=== PATIENT | female | born 1925 | race Caucasian/White ===

== ENCOUNTER 2017-11-10 09:21 | Inpatient (IN) | payer MEDICARE ==
[2017-11-10] VITALS (10 sets, daily range): BP systolic 97–159; BP diastolic 70–93; PULSE 99–111; RESP 20–24; TEMP 96.1–97.5; O2SAT 88–100
[~2017-11-10] VITALS: Ht 170.2 cm; Wt 78.0 kg
[2017-11-10] MEDS ORDERED: SODIUM CHLORIDE 0.9% FLUSH 10 ML FLUSH IVF PRN (10:45)
--- NOTE | 2017-11-10 10:48 | PD ---
HPI Chief Complaint: Respiratory Symptoms Time Seen by Provider: 10:30 Travel History International Travel<30 days: No Contact w/Intl Traveler<30days: No Traveled to known affect area: No History of Present Illness HPI This 89-year-old female is complaining of shortness of breath. She says she started to notice some shortness of breath early in the summer. She went to her physician's in [facility]. There was some disagreement whether her trouble breathing was related to a valve replacement she had had 4 years ago. She had a cow valve placed in the aortic area. She has a history of atrial fibrillation and she recently went to see Dr. Watson Waller and he was concerned that she may have fluid in the right lung. She followed up with Dr. Bryant and was scheduled for a procedure on the [address] [place] [address] to remove some fluid. She was also put on a Z-Napoleon. She is on Coumadin. She was told to hold her Coumadin while she was on a Z-Napoleon. She started coumaden again yesterday. She smoked in the past but stopped about 50 years ago. She has had some weight loss. She says her balance has been off. She has been going to physical therapy. She is not very active. [facility] Social History Tobacco Use: No Allergies-Medications (Allergen,Severity, Reaction): Coded Allergies: codeine (Verified Allergy, Unknown, 11/10/17) lisinopril (Verified Allergy, Unknown, 11/10/17) morphine (Verified Allergy, Unknown, 11/10/17) Reported Meds & Prescriptions Reported Meds & Active Scripts Active Reported Temazepam 15 Mg Cap 15 Mg PO HS PRN Buspirone (Buspirone HCl) 10 Mg Tab 10 Mg PO HS PRN Vitamin E 200 Unit Cap 200 Units PO DAILY Pramipexole (Pramipexole Dihydrochloride) 0.5 Mg Tab 0.5 Mg PO DAILY Simvastatin 40 Mg Tab 40 Mg PO HS Multiple Vitamin 1 Tab 1 Tab PO DAILY Carvedilol 12.5 Mg Tab 12.5 Mg PO BID Losartan-Hydrochlorothiazide 50-12.5 Mg Tab 1 Tab PO DAILY Omeprazole 40 Mg Cap 40 Mg PO BID Levothyroxine (Levothyroxine Sodium) 88 Mcg Tab 88 Mcg PO DAILY Review of Systems General / Constitutional: Positive: Weight Loss, No: Fever, Chills Eyes: No: Diploplia, Blurred Vision HENT: No: Headaches Cardiovascular: No: Chest Pain or Discomfort, Palpitations Respiratory: Positive: Cough, Shortness of Breath Gastrointestinal: No: Vomiting, Diarrhea Genitourinary: No: Urgency, Frequency Musculoskeletal: No: Myalgias, Arthralgias Neurologic: Positive: Weakness Endocrine: No: Heat Intolerance, Cold Intolerance Hematologic/Lymphatic: No: Easy Bruising Physical Exam Narrative GENERAL: Well-developed female. She is short of breath and oxygen saturation on room air is 88% SKIN: Focused skin assessment warm/dry. HEAD: Atraumatic. Normocephalic. EYES: Pupils equal and round. No scleral icterus. No injection or drainage. ENT: No nasal bleeding or discharge. Mucous membranes pink and moist. NECK: Trachea midline. No JVD. CARDIOVASCULAR: Regular rate and rhythm. No murmur appreciated. RESPIRATORY: There is accessory muscle use. There are bilateral rales. Breath sounds are diminished on the right GASTROINTESTINAL: Abdomen soft, non-tender, nondistended. Hepatic and splenic margins not palpable. MUSCULOSKELETAL: No obvious deformities. No clubbing. No cyanosis. No edema. NEUROLOGICAL: Awake and alert. No obvious cranial nerve deficits. Motor grossly within normal limits. Normal speech. PSYCHIATRIC: Appropriate mood and affect; insight and judgment normal. Data Data Last Documented VS Vital Signs Date Time Temp Pulse Resp B/P (MAP) Pulse Ox O2 Delivery O2 Flow Rate FiO2 11/10/17 12:19 97.5 105 22 140/76 (97) 97 Nasal Cannula 2.00 Orders Orders Complete Blood Count With Diff (11/10/17 10:43) Comprehensive Metabolic Panel (11/10/17 10:43) B-Type Natriuretic Peptide (11/10/17 10:43) Act Partial Throm Time (Ptt) (11/10/17 10:43) Prothrombin Time / Inr (Pt) (11/10/17 10:43) Magnesium (Mg) (11/10/17 10:43) Troponin I (11/10/17 10:43) Urinalysis - C+S If Indicated (11/10/17 10:43) Influenzae A/B Antigen (11/10/17 10:43) Blood Culture (11/10/17 10:43) Iv Access Insert/Monitor (11/10/17 10:43) Electrocardiogram (11/10/17 10:43) Ecg Monitoring (11/10/17 10:43) Oximetry (11/10/17 10:43) Oxygen Administration (11/10/17 10:43) Chest, Single Ap (11/10/17 10:43) Sodium Chloride 0.9% Flush (Ns Flush) (11/10/17 10:45) Ct Thorax/ Chest W Iv Contrast (11/10/17 11:23) Iodixanol 320 Inj (Rad Ct) (Visipaque 32 (11/10/17 12:41) Admit Order (Ed Use Only) (11/10/17 13:13) Labs Laboratory Tests Test 11/10/17 11:15 White Blood Count 4.8 TH/MM3 Red Blood Count 4.65 MIL/MM3 Hemoglobin 13.3 GM/DL Hematocrit 41.8 % Mean Corpuscular Volume 89.8 FL Mean Corpuscular Hemoglobin 28.5 PG Mean Corpuscular Hemoglobin Concent 31.8 % Red Cell Distribution Width 17.1 % Platelet Count 113 TH/MM3 Mean Platelet Volume 8.0 FL Neutrophils (%) (Auto) 76.2 % Lymphocytes (%) (Auto) 11.5 % Monocytes (%) (Auto) 12.0 % Eosinophils (%) (Auto) 0.1 % Basophils (%) (Auto) 0.2 % Neutrophils # (Auto) 3.7 TH/MM3 Lymphocytes # (Auto) 0.5 TH/MM3 Monocytes # (Auto) 0.6 TH/MM3 Eosinophils # (Auto) 0.0 TH/MM3 Basophils # (Auto) 0.0 TH/MM3 CBC Comment DIFF FINAL Differential Comment Prothrombin Time 25.5 SEC Prothromb Time International Ratio 2.5 RATIO Activated Partial Thromboplast Time 28.0 SEC Blood Urea Nitrogen 41 MG/DL Creatinine 1.40 MG/DL Random Glucose 103 MG/DL Total Protein 6.7 GM/DL Albumin 3.6 GM/DL Calcium Level 9.3 MG/DL Magnesium Level 1.6 MG/DL Alkaline Phosphatase 61 U/L Aspartate Amino Transf (AST/SGOT) 42 U/L Alanine Aminotransferase (ALT/SGPT) 36 U/L Total Bilirubin 1.1 MG/DL Sodium Level 143 MEQ/L Potassium Level 3.7 MEQ/L Chloride Level 104 MEQ/L Carbon Dioxide Level 28.4 MEQ/L Anion Gap 11 MEQ/L Estimat Glomerular Filtration Rate 35 ML/MIN Troponin I 0.02 NG/ML B-Type Natriuretic Peptide 573 PG/ML MDM Medical Decision Making Medical Screen Exam Complete: Yes Emergency Medical Condition: Yes Medical Record Reviewed: Yes Differential Diagnosis Differential includes pneumonia, CHF, COPD Narrative Course Chest x-ray shows question of elevated hemidiaphragm with questionable pneumonia versus fluid. CT scan was obtained which shows large right pleural effusion. Patient will be admitted for further treatment Diagnosis Primary Impression: Pleural effusion, right Admitting Information Admitting Physician Requests: Admit Baldo Eckert MD Nov 10, 2017 10:48
--- NOTE | 2017-11-10 11:03 | RADRPT ---
EXAM DATE/TIME: 11/10/2017 10:53 [facility] COMPARISON: No previous studies available for comparison. INDICATIONS : Cough and Short of breath MEDICAL HISTORY : AFib, Smoker SURGICAL HISTORY : CABG. ENCOUNTER: Initial ACUITY: 4 - 6 months PAIN SCORE: 6/10 LOCATION: Bilateral chest FINDINGS: There is a prior median sternotomy and valve prosthesis in place. Left lung is clear. Right lung reve als opacity mid and basilar region which could represent elevation of the hemidiaphragm and parenchym al atelectasis CONCLUSION: Abnormal chest x-ray prior median sternotomy and valve prosthesis in place. Opacity inferior aspect of the right hemithorax in part repr esent elevation of hemidiaphragm in part parenchymal consolidation. Sadi Siddiqi MD on November 10, 2017 at 11:00 Board Certified Radiologist. This report was verified electronically.
[2017-11-10 11:22] LABS: AUTOMATED NEUTROPHIL # 3.7 TH/MM3 (1.8-7.7); BASOPHIL % 0.2 % (0.0-2.0); EOSINOPHIL % 0.1 % (0.0-4.0); HEMATOCRIT 41.8 % (35.0-46.0); HEMOGLOBIN 13.3 GM/DL (11.6-15.3); LYMPH % 11.5 % (9.0-44.0); LYMPHOCYTE # 0.5 TH/MM3 (1.0-4.8); MEAN CELL VOLUME 89.8 FL (80.0-100.0); MEAN CORPUSCULAR HEMOGLOBIN 28.5 PG (27.0-34.0); MEAN CORPUSCULAR HGB CONC 31.8 % (32.0-36.0); MONOCYTE # 0.6 TH/MM3 (0-0.9); NEUT % 76.2 % (16.0-70.0); PLATELET COUNT 113 TH/MM3 (150-450); RED BLOOD COUNT 4.65 MIL/MM3 (4.00-5.30); RED CELL DISTRIBUTION WIDTH 17.1 % (11.6-17.2); WHITE BLOOD COUNT 4.8 TH/MM3 (4.0-11.0)
[2017-11-10 11:33] LABS: CHLORIDE 104 MEQ/L (98-107); SODIUM (NA) 143 MEQ/L (136-145)
[2017-11-10 11:35] LABS: CALCIUM 9.3 MG/DL (8.5-10.1)
[2017-11-10 11:36] LABS: ALBUMIN 3.6 GM/DL (3.4-5.0); BICARBONATE 28.4 MEQ/L (21.0-32.0); BLOOD UREA NITROGEN 41 MG/DL (7-18); GLUCOSE,RANDOM 103 MG/DL (74-106); MAGNESIUM 1.6 MG/DL (1.5-2.5)
[2017-11-10 11:37] LABS: INTERNATIONAL NORMALIZED RATIO 2.5 RATIO; PROTHROMBIN TIME - PATIENT 25.5 SEC (9.8-11.6)
[2017-11-10 11:39] LABS: ALT (GPT) 36 U/L (10-53); AST (GOT) 42 U/L (15-37); GLOMERULAR FILTRATION RATE 35 ML/MIN (>89)
[2017-11-10 11:41] LABS: TOTAL BILIRUBIN ADULT 1.1 MG/DL (0.2-1.0); TOTAL PROTEIN 6.7 GM/DL (6.4-8.2)
[2017-11-10 11:42] LABS: ALKALINE PHOSPHATASE 61 U/L (45-117)
[2017-11-10 11:44] LABS: TROPONIN I 0.02 NG/ML (0.02-0.05)
[2017-11-10] MEDS ORDERED: TEMA15CA PO (12:41)
[2017-11-10] MEDS ORDERED: CARV12.52 PO (12:41)
[2017-11-10] MEDS ORDERED: OMEP40CA2 PO (12:41)
[2017-11-10] MEDS ORDERED: MULTTAB67 PO (12:41)
[2017-11-10] MEDS ORDERED: PRAM0.5T PO (12:41)
[2017-11-10] MEDS ORDERED: LEVO88TA2 PO (12:41)
[2017-11-10] MEDS ORDERED: BUSP10TA PO (12:41)
[2017-11-10] MEDS ORDERED: LOSA50TA2 PO (12:41)
[2017-11-10] MEDS ORDERED: VITA200C3 PO (12:41)
[2017-11-10] MEDS ORDERED: SIMV40TA PO (12:41)
[2017-11-10] MEDS ORDERED: IODIXANOL 320 MG/ML 10 ML VIAL (for Rad CT) IVCONTRAST ONE (12:41)
--- NOTE | 2017-11-10 12:54 | RADRPT ---
EXAM DATE/TIME: 11/10/2017 12:28 [place] Corrected on: November 10, 2017; [facility] COMPARISON: CHEST SINGLE AP, November 10, 2017, 10:53. INDICATIONS : Short of breath. Abnormal chest x-ray demonstrating abnormal opacity at the right lung base.. IV CONTRAST: 50 cc Visipaque 320 (iodixanol) IV RADIATION DOSE: 8.31 CTDIvol (mGy) MEDICAL HISTORY : Atrial fibrillation. SURGICAL HISTORY : Valve replacement. ENCOUNTER: Initial ACUITY: 4 - 6 months PAIN SCALE: 0/10 LOCATION: chest TECHNIQUE: Volumetric scanning of the chest was performed. Using automated exposure control and adjustment of t he mA and/or kV according to patient size, radiation dose was kept as low as reasonably achievable to obtain optimal diagnostic quality images. DICOM format image data is available electronically for review and comparison. Follow-up recommendations for detected pulmonary nodules are based at a minimum on nodule size and pa tient risk factors according to Fleischner Society Guidelines. FINDINGS: LUNGS: There is no pneumothorax. There is atelectasis and mild consolidation of the right lung base which li kaden is compressive. There is no left lung infiltrate. No concerning pulmonary nodule is visualized. There is a densely calcified granuloma in the right posterior lung base adjacent to the effusion. PLEURA: There is a moderate to large right pleural effusion extending to the lung apex. There is a small left pleural effusion. MEDIASTINUM: Status post median sternotomy with prosthetic aortic valve in place. The heart size is mildly enlarge d with no evidence of adenopathy. The main pulmonary artery and branch vessels appear intact with no definite filling defect. The tracheal calcifications. There is no pericardial effusion. Air is noted portions of the esophagus. AXILLAE: Within normal limits. No lymphadenopathy. SKELETAL: Within normal limits for patient age. MISCELLANEOUS: The visualized upper abdominal organs demonstrate no acute abnormality. There are multiple calcified splenic granulomas. The patient is status post cholecystectomy. There is a small hiatal hernia. CONCLUSION: 1. Moderate to large right pleural effusion and minimal left effusion. 2. Atelectasis and or mild consolidation the right lung base which likely is compressive and due to b e fusion. 3. Densely calcified granuloma in the right lower lobe. 4. Status post median sternotomy with aortic valve prosthesis in place. There is mild cardiomegaly. 5. There is no elevation of the right hemidiaphragm. George Bishop MD on November 10, 2017 at 12:46 Board Certified Radiologist. This report was verified electronically. George Bishop MD on November 10, 2017 at 13:18 Board Certified Radiologist. This report was verified electronically.
[2017-11-10] MEDS ORDERED: NALOXONE HCL 0.4 MG/ML AMP IV PUSH PRN (13:45)
[2017-11-10] MEDS ORDERED: ONDANSETRON HCL 4 MG/2 ML VIAL IVP PRN (13:45)
[2017-11-10] MEDS ORDERED: SODIUM CHLORIDE 0.9% FLUSH 10 ML FLUSH IV FLUSH PRN (13:45)
[2017-11-10] MEDS ORDERED: ACETAMINOPHEN 325 MG TAB PO PRN (13:45)
--- NOTE | 2017-11-10 15:34 | HHI.HP ---
[facility] Service [facility] Primary Care Physician Unknown Admission Diagnosis RIGHT PLEURAL EFFUSION Diagnoses: Chief Complaint: Shortness of breath Travel History International Travel<30 Days: No Contact w/Intl Traveler <30 Da: No Traveled to Known Affected Are: No History of Present Illness Written by Alysa Yang, acting as scribe for Dr. Leon on 11/10/17 at 15:32. This is an 89-year-old female patient with a known medical history of hypertension, atrial fibrillation and hyperlipidemia who presented to the ED with worsening shortness of breath. Patient states that she's had shortness of breath for roughly over the last year but has seemed to worsen over the past 2- 3 weeks. She does admit to a productive cough, with yellow colored sputum. States she tried to take [id number] cough syrup with no avail. Does admit to diminished appetite 1 week. She also comments that in August when she saw her manager special events, she was taken off her WHIT inhibitor due to chronic cough. She did see her PCP within the last couple weeks and noticed on an x-ray that she had a pleural effusion in her right lung. Patient follows up with Dr. Pizano who has scheduled the patient for an outpatient thoracentesis on the of this month. In the meantime, her freelance court reporter has placed her on azithromycin and prednisone for a cough and an upper respiratory infection. Patient states that these have been ineffective to relieve her shortness of breath which led to her presentation to the ED. Denies any fever, chills, abdominal pain, nausea, vomiting, diarrhea or dysuria. BNP 573, white blood cell within normal limits, influenza negative. Afebrile. Review of Systems Constitutional: COMPLAINS OF: Fatigue, DENIES: Fever, Chills Eyes: DENIES: Blurred vision Ears, nose, mouth, throat: DENIES: Vertigo Respiratory: COMPLAINS OF: Cough, Sputum production, Shortness of breath Cardiovascular: DENIES: Chest pain Gastrointestinal: DENIES: Abdominal pain, Black stools, Bloody stools, Constipation, Diarrhea, Nausea, Vomiting Musculoskeletal: DENIES: Joint pain Hematologic/lymphatic: DENIES: Bruising Neurologic: DENIES: Abnormal gait Psychiatric: DENIES: Anxiety Except as stated in HPI: all other systems reviewed are Neg Past Family Social History Past Medical History Anxiety Atrial fibrillation COPD Hyperlipidemia Hypertension Thyroid disease GERD CAD Past Surgical History Unspecified back surgery with seth placement Aortic valve replacement Cholecystectomy Reported Medications Active Reported Temazepam 15 Mg Cap 15 Mg PO HS PRN Buspirone (Buspirone HCl) 10 Mg Tab 10 Mg PO HS PRN Vitamin E 200 Unit Cap 200 Units PO DAILY Pramipexole (Pramipexole Dihydrochloride) 0.5 Mg Tab 0.5 Mg PO DAILY Simvastatin 40 Mg Tab 40 Mg PO HS Multiple Vitamin 1 Tab 1 Tab PO DAILY Carvedilol 12.5 Mg Tab 12.5 Mg PO BID Losartan-Hydrochlorothiazide 50-12.5 Mg Tab 1 Tab PO DAILY Omeprazole 40 Mg Cap 40 Mg PO BID Levothyroxine (Levothyroxine Sodium) 88 Mcg Tab 88 Mcg PO DAILY Allergies: Coded Allergies: codeine (Verified Allergy, Unknown, 11/10/17) lisinopril (Verified Allergy, Unknown, 11/10/17) morphine (Verified Allergy, Unknown, 11/10/17) Active Ordered Medications Current Medications Medications (Trade) Dose Ordered Sig/Gagandeep Route Start Time Stop Time Status Last Admin (NS Flush) 2 ml UNSCH PRN IV FLUSH 11/10/17 13:45 (NS Flush) 2 ml BID IV FLUSH 11/10/17 21:00 (Tylenol) 650 mg Q4H PRN PO 11/10/17 13:45 (Zofran Inj) 4 mg Q6H PRN IVP 11/10/17 13:45 (Narcan Inj) 0.4 mg UNSCH PRN IV PUSH 11/10/17 13:45 Family History Family history reviewed and noncontributory. Social History Denies any tobacco or alcohol or illicit drug use. Physical Exam Vital Signs Vital Signs Date Time Temp Pulse Resp B/P (MAP) Pulse Ox O2 Delivery O2 Flow Rate FiO2 11/10/17 14:07 109 24 129/78 (95) 96 Nasal Cannula 2.00 11/10/17 13:30 Nasal Cannula 2.00 11/10/17 13:05 111 22 138/83 (101) 94 Nasal Cannula 1/15/18 12:19 97.5 105 22 140/76 (97) 97 Nasal Cannula 2.00 11/10/17 11:40 99 24 138/83 (101) 88 Room Air 11/10/17 10:40 94 Room Air 11/10/17 10:40 94 Room Air 11/10/17 10:40 Room Air 11/10/17 09:29 97.4 107 22 159/93 (115) 95 Physical Exam GENERAL: Well-nourished, well-developed elderly female patient lying in bed on Supplemental O2 SKIN: Warm and dry. No rash. HEAD: Normocephalic. Atraumatic. EYES: Pupils equal and round. No scleral icterus. No injection or drainage. ENT: No nasal bleeding or discharge. Mucous membranes pink and moist. NECK: Supple. Trachea midline. CARDIOVASCULAR: Irregularly irregular. No murmur appreciated. RESPIRATORY: Diffuse crackles throughout. Mild accessory muscle use. Breath sounds equal bilaterally. GASTROINTESTINAL: Abdomen soft, non-tender, nondistended. Normoactive bowel sounds x4. MUSCULOSKELETAL: No obvious deformities. Extremities without clubbing, cyanosis , or edema. NEUROLOGICAL: Awake and alert. No obvious cranial nerve deficits. Motor grossly within normal limits. 5/5 muscle strength in bilateral upper and lower extremities. Normal speech. PSYCHIATRIC: Appropriate mood and affect; insight and judgment normal. Laboratory Laboratory Tests Test 11/10/17 11:15 White Blood Count 4.8 Red Blood Count 4.65 Hemoglobin 13.3 Hematocrit 41.8 Mean Corpuscular Volume 89.8 Mean Corpuscular Hemoglobin 28.5 Mean Corpuscular Hemoglobin Concent 31.8 Red Cell Distribution Width 17.1 Platelet Count 113 Mean Platelet Volume 8.0 Neutrophils (%) (Auto) 76.2 Lymphocytes (%) (Auto) 11.5 Monocytes (%) (Auto) 12.0 Eosinophils (%) (Auto) 0.1 Basophils (%) (Auto) 0.2 Neutrophils # (Auto) 3.7 Lymphocytes # (Auto) 0.5 Monocytes # (Auto) 0.6 Eosinophils # (Auto) 0.0 Basophils # (Auto) 0.0 CBC Comment DIFF FINAL Differential Comment Prothrombin Time 25.5 Prothromb Time International Ratio 2.5 Activated Partial Thromboplast Time 28.0 Blood Urea Nitrogen 41 Creatinine 1.40 Random Glucose 103 Total Protein 6.7 Albumin 3.6 Calcium Level 9.3 Magnesium Level 1.6 Alkaline Phosphatase 61 Aspartate Amino Transf (AST/SGOT) 42 Alanine Aminotransferase (ALT/SGPT) 36 Total Bilirubin 1.1 Sodium Level 143 Potassium Level 3.7 Chloride Level 104 Carbon Dioxide Level 28.4 Anion Gap 11 Estimat Glomerular Filtration Rate 35 Troponin I 0.02 B-Type Natriuretic Peptide 573 Date/Time Source Procedure Growth Status 11/10/17 11:15 Blood Peripheral Aerobic Blood Culture Pending Received 11/10/17 11:15 Blood Peripheral Anaerobic Blood Culture Pending Received 11/10/17 11:15 Nasal Aspirate Influenza Types A,B Antigen (NITA) - Final NEGATIVE FOR FLU A AND B ANTIGEN.... Complete Result Diagram: 11/10/17 1115 11/10/17 1115 Imaging Last Impressions Chest CT 11/10/17 1123 Signed Impressions: Service Date/Time: Friday, November 10, 2017 12:28 - CONCLUSION: 1. Moderate to large right pleural effusion and minimal left effusion. 2. Atelectasis and or mild consolidation the right lung base which likely is compressive and due to be fusion. 3. Densely calcified granuloma in the right lower lobe. 4. Status post median sternotomy with aortic valve prosthesis in place. There is mild cardiomegaly. 5. There is no elevation of the right hemidiaphragm. George Bishop MD Chest X-Ray 11/10/17 1043 Signed Impressions: Service Date/Time: Friday, November 10, 2017 10:53 - CONCLUSION: Abnormal chest x-ray prior median sternotomy and valve prosthesis in place. Opacity inferior aspect of the right hemithorax in part represent elevation of hemidiaphragm in part parenchymal consolidation. Sadi Siddiqi MD Septic Shock Reassessment Septic shock perfusion: reassessment completed Caprini VTE Risk Assessment Caprini VTE Risk Assessment: Mod/High Risk (score >= 2) Caprini Risk Assessment Model Point Value = 1 Point Value = 2 Point Value = 3 Point Value = 5 Age 41-60 Minor surgery BMI > 25 kg/m2 Swollen legs Varicose veins or History of unexplained or recurrent spontaneous Oral contraceptives or hormone replacement Sepsis (< 1 month) Serious lung disease, including pneumonia (< 1 month) Abnormal pulmonary function Acute myocardial infarction Congestive heart failure (< 1 month) History of inflammatory bowel disease Medical patient at bed rest Age 61-74 Arthroscopic surgery Major open surgery (> 45 min) Laparoscopic surgery (> 45 min) Malignancy Confined to bed (> 72 hours) Immobilizing plaster cast Central venous access Age >= 75 History of VTE Family history of VTE Factor V Leiden Prothrombin [id number] Lupus anticoagulant Anticardiolipin antibodies Elevated serum homocysteine Heparin-induced thrombocytopenia Other congenital or acquired thrombophilia Stroke (< 1 month) Elective arthroplasty Hip, pelvis, or leg fracture Acute spinal cord injury (< 1 month) Prophylaxis Regimen Total Risk Factor Score Risk Level Prophylaxis Regimen 0-1 Low Early ambulation 2 Moderate Order ONE of the following: *Sequential Compression Device (SCD) *Heparin 5000 units SQ BID 3-4 Higher Order ONE of the following medications: *Heparin 5000 units SQ TID *Enoxaparin/Lovenox 40 mg SQ daily (WT < 150 kg, CrCl > 30 mL/min) *Enoxaparin/Lovenox 30 mg SQ daily (WT < 150 kg, CrCl > 10-29 mL/min) *Enoxaparin/Lovenox 30 mg SQ BID (WT < 150 kg, CrCl > 30 mL/min) AND/OR *Sequential Compression Device (SCD) 5 or more Highest Order ONE of the following medications: *Heparin 5000 units SQ TID (Preferred with Epidurals) *Enoxaparin/Lovenox 40 mg SQ daily (WT < 150 kg, CrCl > 30 mL/min) *Enoxaparin/Lovenox 30 mg SQ daily (WT < 150 kg, CrCl > 10-29 mL/min) *Enoxaparin/Lovenox 30 mg SQ BID (WT < 150 kg, CrCl > 30 mL/min) AND *Sequential Compression Device (SCD) Assessment and Plan Problem List: (1) Pleural effusion, right ICD Code: J90 - Pleural effusion, not elsewhere classified Status: Acute Plan: With worsening shortness of breath Chest x-ray reviewed showing opacity in the inferior aspect of the right hemithorax in part represent elevation of the hemidiaphragm in part parenchymal consolidation. CT reviewed showing moderate to large right pleural effusion and minimal left effusion. Mild consolidation on the right lung base which is likely compresses and due to the fusion. Consult placed to pulmonology, appreciate further recommendations. Thoracentesis ordered. Blood cultures pending. Follow. Influenza negative. Will place on IV Levaquin. Supplemental O2 as needed. Continue pulse oximetry readings. (2) Acute on chronic kidney failure ICD Code: N17.9 - Acute kidney failure, unspecified; N18.9 - Chronic kidney disease, unspecified Plan: Creatinine 1.4. Unknown baseline. BNP 573. Lasix 40 mg x 1. Follow BMP in a.m. (3) Hypertension ICD Code: I10 - Essential (primary) hypertension Plan: BP elevated on presentation to ED, monitor BP trends. Continue home medications. (4) Hyperlipemia ICD Code: E78.5 - Hyperlipidemia, unspecified Plan: Continue home statin. (5) Hypothyroidism ICD Code: E03.9 - Hypothyroidism, unspecified Plan: Continue home Synthroid. Physician Certification 2 Midnight Certification Type: Admission for Inpatient Services Order for Inpatient Services The services are ordered in accordance with Medicare regulations or non- Medicare payer requirements, as applicable. In the case of services not specified as inpatient-only, they are appropriately provided as inpatient services in accordance with the 2-midnight benchmark. Estimated LOS (days): 2 2 days is the estimated time the patient will need to remain in the hospital, assuming treatment plan goals are met and no additional complications. Post-Hospital Plan: Not yet determined Medical Decision Making Impression and Plan This note was transcribed by richard [[email or web address]]. I, Dr. Shonda Leon personally performed the history, physical exam, and medical decision making; and confirmed the accuracy of the information in the transcribed note. patient seen and examined at time of note but only signed at this time d/w patien and daughter cxr reviewed by me f/u rojelio, us Authenticated by Dr. Shonda Leon on 11/10/17 at 16:45. Alysa Yang Nov 10, 2017 15:34 Shonda Leon MD Nov 10, 2017 16:51
[2017-11-10] MEDS ORDERED: busPIRone HCL 10 MG TAB PO PRN (16:00)
[2017-11-10] MEDS ORDERED: FUROSEMIDE 40 MG/4 ML VIAL IV PUSH ONE (17:00)
[2017-11-10] MEDS: LEVOFLOXACIN 500 MG PREMIX INJ 100 ML IV SCH (18:04)
[2017-11-10] MEDS: PANTOPRAZOLE SOD 40 MG DELAYED RELEASE TAB PO SCH (20:52)
[2017-11-10] MEDS: CARVEDILOL 12.5 MG TAB PO SCH (20:52)
[2017-11-10] MEDS: SODIUM CHLORIDE 0.9% FLUSH 10 ML FLUSH IV FLUSH SCH (20:52)
[2017-11-10] MEDS: PRAVASTATIN SOD 40 MG TAB PO SCH (20:52)
[2017-11-10 22:45] LABS: BILIRUBIN, URINE NEG (NEG); BLOOD, URINE NEG (NEG); GLUCOSE,URINE NEG (NEG); KETONE, URINE NEG (NEG); NITRITE,URINE NEG (NEG); PH, URINE 5.5 (5.0-8.5); URINE LEUKOCYTE ESTERASE NEG (NEG)
[2017-11-10 22:58] LABS: SQUAMOUS EPITHELIAL CELL URINE 0-5 /hpf (0-5); URINE COLOR YELLOW (YELLW/STRAW); WBC, URINE 0-2 /hpf (0-5)
[2017-11-11] VITALS (9 sets, daily range): BP systolic 80–142; BP diastolic 54–81; PULSE 80–113; RESP 18–22; TEMP 97.3–99.9; O2SAT 93–99
[2017-11-11] MEDS: LEVOTHYROXINE SODIUM 88 MCG TAB PO SCH (04:52)
[2017-11-11 06:25] LABS: AUTOMATED NEUTROPHIL # 3.1 TH/MM3 (1.8-7.7); BASOPHIL % 0.2 % (0.0-2.0); EOSINOPHIL % 0.2 % (0.0-4.0); HEMATOCRIT 36.7 % (35.0-46.0); HEMOGLOBIN 11.3 GM/DL (11.6-15.3); LYMPHOCYTE # 0.5 TH/MM3 (1.0-4.8); MEAN CELL VOLUME 90.6 FL (80.0-100.0); MEAN CORPUSCULAR HEMOGLOBIN 27.9 PG (27.0-34.0); MEAN CORPUSCULAR HGB CONC 30.8 % (32.0-36.0); MEAN PLATELET VOLUME 8.1 FL (7.0-11.0); MONO % 15.3 % (0.0-8.0); MONOCYTE # 0.6 TH/MM3 (0-0.9); NEUT % 72.3 % (16.0-70.0); PLATELET COUNT 117 TH/MM3 (150-450); RED BLOOD COUNT 4.05 MIL/MM3 (4.00-5.30); RED CELL DISTRIBUTION WIDTH 17.5 % (11.6-17.2); WHITE BLOOD COUNT 4.2 TH/MM3 (4.0-11.0)
[2017-11-11 06:37] LABS: INTERNATIONAL NORMALIZED RATIO 3.7 RATIO
[2017-11-11 06:42] LABS: BICARBONATE 33.2 MEQ/L (21.0-32.0); CALCIUM 8.6 MG/DL (8.5-10.1)
[2017-11-11 06:46] LABS: CREATININE 1.3 MG/DL (0.50-1.00)
[2017-11-11] MEDS ORDERED: PHYTONADIONE 10 MG/ML VIAL SQ ONE (09:00)
[2017-11-11] MEDS ORDERED: SODIUM CHLOR 0.9% 250 ML INJ 250 ML IV ONE (09:15)
[2017-11-11] MEDS: SODIUM CHLORIDE 0.9% FLUSH 10 ML FLUSH IV FLUSH SCH ×2 (10:52→21:10)
[2017-11-11] MEDS: CARVEDILOL 12.5 MG TAB PO SCH ×2 (10:53→19:41)
[2017-11-11] MEDS: PRAMIPEXOLE DIHYDROCHLORIDE 0.25 MG TAB PO SCH (10:53)
[2017-11-11] MEDS: LOSARTAN 50 MG TAB PO SCH (10:53)
[2017-11-11] MEDS: MULTIVITAMIN TAB PO SCH (10:53)
[2017-11-11] MEDS: HYDROCHLOROTHIAZIDE 12.5 MG CAP PO SCH (10:53)
[2017-11-11] MEDS: PANTOPRAZOLE SOD 40 MG DELAYED RELEASE TAB PO SCH ×2 (10:53→21:10)
--- NOTE | 2017-11-11 11:52 | HHI.PR ---
Subjective Remarks Follow up pleural effusion. Patient states that her breathing is better today. She is more comfortable on oxygen. Denies chest pain. Objective Vitals Vital Signs Date Time Temp Pulse Resp B/P (MAP) Pulse Ox O2 Delivery O2 Flow Rate FiO2 11/11/17 10:31 97 Nasal Cannula 2.00 11/11/17 08:00 99.0 96 20 105/73 (84) 97 11/11/17 00:00 97.3 113 18 95/75 (82) 99 11/10/17 21:36 98 Nasal Cannula 11/10/17 20:00 97.3 107 20 97/70 (79) 99 11/10/17 16:43 98 Nasal Cannula 2.00 11/10/17 16:00 96.1 103 20 117/72 (87) 100 11/10/17 15:42 109 22 130/77 (94) 95 Nasal Cannula 2.00 11/10/17 14:07 109 24 129/78 (95) 96 Nasal Cannula 2.00 11/10/17 13:30 Nasal Cannula 2.00 11/10/17 13:05 111 22 138/83 (101) 94 Nasal Cannula 11/10/17 12:19 97.5 105 22 140/76 (97) 97 Nasal Cannula 2.00 I/O 11/10/17 11/10/17 11/10/17 11/11/17 11/11/17 11/11/17 07:00 15:00 23:00 07:00 15:00 23:00 Intake Total 100 ml 520 ml Balance 100 ml 520 ml Intake Oral 520 ml IV Total 100 ml # Voids 1 1 # Bowel Movements 0 Result Diagram: 11/11/17 0515 11/11/17 0515 Imaging Last Impressions Chest CT 11/10/17 1123 Signed Impressions: Service Date/Time: Friday, November 10, 2017 12:28 - CONCLUSION: 1. Moderate to large right pleural effusion and minimal left effusion. 2. Atelectasis and or mild consolidation the right lung base which likely is compressive and due to be fusion. 3. Densely calcified granuloma in the right lower lobe. 4. Status post median sternotomy with aortic valve prosthesis in place. There is mild cardiomegaly. 5. There is no elevation of the right hemidiaphragm. George Bishop MD Chest X-Ray 11/10/17 1043 Signed Impressions: Service Date/Time: Friday, November 10, 2017 10:53 - CONCLUSION: Abnormal chest x-ray prior median sternotomy and valve prosthesis in place. Opacity inferior aspect of the right hemithorax in part represent elevation of hemidiaphragm in part parenchymal consolidation. Sadi Siddiqi MD Objective Remarks General: Elderly female in no acute distress. Heart: Regular rate and rhythm. No murmur. Lungs: Decreased breath sounds on the right. Breathing is nonlabored. Abdomen: Soft, nontender, nondistended. Extremities: No lower extremity edema. Psych: Alert and oriented. Procedures None Urinary Catheter: No Vascular Central Line Catheter: No A/P Problem List: (1) Pleural effusion, right ICD Code: J90 - Pleural effusion, not elsewhere classified Status: Acute (2) Acute on chronic kidney failure ICD Code: N17.9 - Acute kidney failure, unspecified; N18.9 - Chronic kidney disease, unspecified (3) Hypertension ICD Code: I10 - Essential (primary) hypertension (4) Hyperlipemia ICD Code: E78.5 - Hyperlipidemia, unspecified (5) Hypothyroidism ICD Code: E03.9 - Hypothyroidism, unspecified Assessment and Plan 1. Pleural effusion, right: Patient states that she feels better today now that she is on oxygen. Thoracentesis ordered, but unable to be done secondary to elevated INR. Pulmonology consultation is pending. 2. Acute kidney injury superimposed on chronic kidney disease: Monitor BUN and creatinine. Slightly better today. 3. Hypertension: Continue carvedilol, HCTZ, losartan. 4. Hyperlipidemia: Continue statin. 5. Hypothyroidism: Continue Synthroid. 6. History of TIA: Patient on Coumadin. 7. Supratherapeutic INR: Patient has been on antibiotics recently. Coumadin on hold. FFP, vitamin K ordered. Recheck INR this afternoon. 8. DVT prophylaxis: INR is supratherapeutic. Resume Coumadin following procedure. Curtis Fink MD Nov 11, 2017 11:52
--- NOTE | 2017-11-11 14:33 | EKG ---
Date Performed: 11/10/2017 Time Performed: 11:08:41 PTAGE: 89 years EKG: ATRIAL FIBRILLATION LOW QRS VOLTAGE IN EXTREMITY LEADS ABNORMAL RHYTHM ECG NO PREVIOUS TRACING DOCTOR: Carey John Interpretating Date/Time 11/11/2017 14:31:48
[2017-11-11 18:05] LABS: INTERNATIONAL NORMALIZED RATIO 2.4 RATIO; PROTHROMBIN TIME - PATIENT 24.7 SEC (9.8-11.6)
--- NOTE | 2017-11-11 18:27 | MB ---
cc: JERICA PIZANO DATE OF CONSULTATION 11/11/17 REASON FOR CONSULTATION Right pleural effusion. HISTORY OF PRESENT ILLNESS Mrs. Cordoba is an 89 year old female with known history of hypertension, chronic atrial fibrillation, status post valve replacement on anticoagulant therapy on intermediate project manager basis, had a right pleural effusion for which I had seen her about a week ago. Plans for a thoracentesis as an outpatient were underway. The patient, however, has chronic shortness of breath which seems to be worsening with cough and expectoration of thick, yellowish mucoid secretion. She denies history of fever, chills, hemoptysis, has no history of TB or previous industrial exposure. PAST MEDICAL HISTORY 1. Aortic valve replacement 2. Previous cholecystectomy 3. Back surgery 4. Atrial fibrillation, 5. Hypertension, 6. Hyperlipidemia, 7. Hypothyroidism, 8. Acid reflux disease 9. Coronary artery disease MEDICATIONS At home include 1. Temazepam 2. Buspirone 10 mg at bedtime. 3. Mirapax. 4. Simvastatin 5. Vitamin tablet 6. Carvedilol 7. Losartan. 8. HCTZ 9. Omeprazole. 10. Levothyroxine. ALLERGIES CODEINE LISINOPRIL MORPHINE FAMILY HISTORY Noncontributory. SOCIAL HISTORY Does not smoke and does not drink. REVIEW OF SYSTEMS 12-point review of systems as per HPI and past history otherwise negative. PHYSICAL EXAMINATION GENERAL: The patient is alert. VITAL SIGNS: Temperature is 97.5, pulse 90, respiration 20, blood pressure 134/84. HEENT: Exam unremarkable. Eyes without icterus. NECK: No adenopathy or thyroid enlargement. CHEST: Decreased breath sounds, lower half right hemithorax. CARDIAC: irregularity noted. ABDOMEN: Lax, bowel sounds audible. EXTREMITIES: Trace edema. LABORATORY DATA White count 4.8, hemoglobin 13, hematocrit 41, platelets 113,000. Sodium 143, potassium 3.7, BUN 41, creatinine 1.4. IMAGING STUDIES CT chest with a moderate to large right pleural effusion, associated atelectasis, calcified granuloma right lower lung, previous aortic valve surgery. IMPRESSION 1. Right pleural effusion, etiology unclear 2. Chronic kidney disease. 3. Atrial fibrillation 4. Status aortic valve replacement 5. Hypertension 6. Hyperlipidemia 7. Hypothyroidism. PLAN The patient does have increasing shortness of breath most likely related to an upper respiratory infection with cough expectoration of yellowish mucoid secretion. Antibiotic therapy would be appropriate together with pulmonary toilet to improve the patient's pulmonary status. Meanwhile, the patient will require a thoracentesis and, since he is in the hospital at present, this would be appropriate to proceed. Her INR is at 3.7 and she is getting fresh frozen plasma at this time. We will follow the patient's course along with you and depending on her progress proceed further. I do thank you for asking me to partake in Mrs. Cordoba' care. Jerica Pizano MD WWW/ /5:40 PM /5:51 PM
[2017-11-11] MEDS: LEVOFLOXACIN 500 MG PREMIX INJ 100 ML IV SCH (18:29)
--- NOTE | 2017-11-11 20:20 | ECHRPT ---
Indication: sob CONCLUSIONS Normal left ventricular size. The left ventricular systolic function is low normal with estimated EF of 50%. The right ventricle is mildly dilated. The right atrial size is moderately dilated. Mild mitral valve regurgitation. Normal function of aortic valve prosthesis. There is moderate to severe tricuspid valve regurgitation. The estimated pulmonary arterial pressure is 73 mmHg. BP: / HR: Rhythm: MEASUREMENTS (Male / Female) Normal Values Technical Quality:Technically difficult study 2D ECHO LV Diastolic Diameter PLAX 4.3 cm 4.2 - 5.9 / 3.9 - 5.3 cm LV Systolic Diameter PLAX 3.5 cm IVS Diastolic Thickness 1.0 cm 0.6 - 1.0 / 0.6 - 0.9 cm LVPW Diastolic Thickness 0.9 cm 0.6 - 1.0 / 0.6 - 0.9 cm LV Relative Wall Thickness 0.5 RV Internal Dim ED PLAX 3.2 cm LVOT Diameter 2.1 cm M-MODE Aortic Root Diameter MM 2.2 cm LA Systolic Diameter MM 3.7 cm LA Ao Ratio MM 1.7 DOPPLER AV Peak Velocity 155.0 cm/s AV Peak Gradient 9.6 mmHg AV Mean Gradient 5.0 mmHg AV Velocity Time Integral 26.1 cm LVOT Peak Velocity 56.4 cm/s LVOT Peak Gradient 1.3 mmHg LVOT Velocity Time Integral 12.4 cm AV Area Cont Eq vti 1.6 cm AV Area Cont Eq pk 1.3 cm LV E' Lateral Velocity 7.8 cm/s LV E' Septal Velocity 6.5 cm/s TR Peak Velocity 396.0 cm/s TR Peak Gradient 62.7 mmHg Right Atrial Pressure 10.0 mmHg Pulmonary Artery Systolic Pressu 72.7 mmHg Right Ventricular Systolic Press 72.7 mmHg FINDINGS LEFT VENTRICLE Normal left ventricular size. The left ventricular systolic function is low normal with estimated EF of 50%. RIGHT VENTRICLE The right ventricle is mildly dilated. Right ventricle 3.3 cm LEFT ATRIUM The left atrial size is normal. RIGHT ATRIUM The right atrial size is moderately dilated. Right atrium 4.5 ATRIAL SEPTUM Normal atrial septal thickness without atrial level shunting by limited color doppler interrogation. AORTA The aortic root and proximal ascending aorta are normal in size on limited imaging. MITRAL VALVE Structurally normal mitral valve. Mild mitral valve regurgitation. AORTIC VALVE AV replacement 4 years No aortic valve regurgitation. Aortic valve area is 1.6 cm. Aortic valve mean gradient is 5 mmHg. TRICUSPID VALVE There is moderate to severe tricuspid valve regurgitation. The estimated pulmonary arterial pressure is 72.7 mmHg. PULMONARY VALVE No pulmonary valve regurgitation or stenosis. VESSELS The inferior vena cava is normal in size. PERICARDIUM No pericardial effusion. Abdoul Mon MD, FACC (Electronically Signed) Final Date:11 November 2017 20:19
[2017-11-11] MEDS: PRAVASTATIN SOD 40 MG TAB PO SCH (21:10)
[2017-11-11] MEDS ORDERED: POTASSIUM CHLORIDE 20 MEQ CONTROLLED RELEASE TAB PO ONE (23:00)
[2017-11-11] MEDS ORDERED: FUROSEMIDE 40 MG/4 ML VIAL IV PUSH ONE (23:00)
[2017-11-11] MEDS: TEMAZEPAM 15 MG CAP PO PRN (23:34)
[2017-11-12] VITALS (8 sets, daily range): BP systolic 86–105; BP diastolic 56–73; PULSE 91–116; RESP 18–20; TEMP 97.3–98.3; O2SAT 94–98
[2017-11-12] MEDS: LEVOTHYROXINE SODIUM 88 MCG TAB PO SCH (05:45)
[2017-11-12 06:32] LABS: INTERNATIONAL NORMALIZED RATIO 1.7 RATIO; PROTHROMBIN TIME - PATIENT 16.7 SEC (9.8-11.6)
[2017-11-12] MEDS: MULTIVITAMIN TAB PO SCH (09:00)
[2017-11-12] MEDS: CARVEDILOL 12.5 MG TAB PO SCH ×2 (09:00→21:00)
[2017-11-12] MEDS: SODIUM CHLORIDE 0.9% FLUSH 10 ML FLUSH IV FLUSH SCH ×2 (10:42→21:56)
[2017-11-12] MEDS: PANTOPRAZOLE SOD 40 MG DELAYED RELEASE TAB PO SCH ×2 (10:57→21:56)
[2017-11-12] MEDS: PRAMIPEXOLE DIHYDROCHLORIDE 0.25 MG TAB PO SCH (10:59)
[2017-11-12] MEDS: HYDROCHLOROTHIAZIDE 12.5 MG CAP PO SCH (11:00)
[2017-11-12] MEDS: LOSARTAN 50 MG TAB PO SCH (11:00)
--- NOTE | 2017-11-12 13:07 | HHI.PR ---
Subjective Remarks Patient seen and examined today for follow-up on right sided pleural effusion, hypoxia. Patient was unable to have thoracentesis performed yesterday due to coagulopathy from Coumadin. Patient was given vitamin K and FFP with improvement. Plans for thoracentesis today. Discussed with patient and family at bedside for extensive amount of time. Objective Vital Signs Date Time Temp Pulse Resp B/P (MAP) Pulse Ox O2 Delivery O2 Flow Rate FiO2 11/12/17 08:25 97 Nasal Cannula 2.00 11/12/17 08:00 97.8 107 18 102/66 (78) 96 11/12/17 07:00 96 Nasal Cannula 2.00 Humidified 11/12/17 00:00 97.8 116 20 101/65 (77) 96 11/11/17 21:15 96 Nasal Cannula 2.00 11/11/17 20:00 97.7 93 20 80/54 (63) 96 11/11/17 20:00 96 Nasal Cannula 2.00 Humidified 11/11/17 16:12 98.6 106 20 84/69 99 11/11/17 16:00 98.2 100 20 88/65 (73) 98 11/11/17 16:00 98.5 95 20 89/63 98 11/11/17 15:52 98.9 80 20 88/64 98 I/O 11/11/17 11/11/17 11/11/17 11/12/17 11/12/17 11/12/17 07:00 15:00 23:00 07:00 15:00 23:00 Intake Total 520 ml 240 ml 497 ml 480 ml Output Total 200 ml Balance 520 ml 240 ml 497 ml 280 ml Intake Oral 520 ml 240 ml 480 ml IV Total 100 ml FFP 322 ml Blood Product IV Normal Saline Flush 75 ml Output Urine Total 200 ml # Voids 1 1 # Bowel Movements 0 1 Result Diagram: 11/11/17 0515 11/11/17 0515 Imaging Last Impressions Chest CT 11/10/17 1123 Signed Impressions: Service Date/Time: Friday, November 10, 2017 12:28 - CONCLUSION: 1. Moderate to large right pleural effusion and minimal left effusion. 2. Atelectasis and or mild consolidation the right lung base which likely is compressive and due to be fusion. 3. Densely calcified granuloma in the right lower lobe. 4. Status post median sternotomy with aortic valve prosthesis in place. There is mild cardiomegaly. 5. There is no elevation of the right hemidiaphragm. George Bishop MD Chest X-Ray 11/10/17 1043 Signed Impressions: Service Date/Time: Friday, November 10, 2017 10:53 - CONCLUSION: Abnormal chest x-ray prior median sternotomy and valve prosthesis in place. Opacity inferior aspect of the right hemithorax in part represent elevation of hemidiaphragm in part parenchymal consolidation. Sadi Siddiqi MD Objective Remarks GENERAL: Well-developed, well-nourished, in no acute distress. alert and orientated HEENT: Head is normocephalic without any lesions or masses noted. Facial features are symmetric. Eyes: Extraocular muscles are intact. Conjunctivae were clear. NECK: Supple without any masses. Trachea midline no deviation. No JVD, CARDIAC: Regular rhythm, regular rate. S1/S2 are heard. No murmurs gallops or rubs. LUNGS: Absent lung sounds on the right. No wheeze, rhonchi or rales. No use of accessory muscles on inspiration or expiration. Mild labored speech ABDOMEN: Soft, nontender. Nondistended. Bowel sounds heard in all 4 quadrants. No organomegaly or masses. Negative rebound, negative guarding EXTREMITIES: No edema, pulses are equal bilaterally. No cyanosis or clubbing NEUROLOGY: Mood and affect appear appropriate. Cranial nerves II through XII grossly intact. Moving all extremities, speech is clear A/P Assessment and Plan Large right pleural effusion, unknown etiology Patient was scheduled for outpatient procedure, however due to worsening respiratory status, shortness of breath, dyspne, she presented to the hospital and subsequently admitted T and chest x-ray does show whiteout of the right long and large pleural effusion Radiology consulted for ultrasound-guided thoracentesis Awaiting results to evaluate for transudative versus exudative Continue supplement oxygen to maintain O2 sats greater than 92% Supratherapeutic INR Patient was recently on Zithromax, Coumadin was on hold, however INR did continue to worsen Status post vitamin K 10 mg subcutaneous, status post transfusion of one unit of fresh frozen plasma INR 1.7 today Chronic kidney disease stage III Renal functions appear to be stable at this time Hypertension, hyperlipidemia, coronary artery disease, history of atrial fibrillation, history of aortic valve replacement, history of TIA Home medications continued After thoracentesis, will need to restart Coumadin with Pharmacy consult DVT prevention Patient was on Coumadin, after thoracentesis will start Lovenox and restart Coumadin Curtis Ramos Nov 12, 2017 13:07
--- NOTE | 2017-11-12 16:24 | RADRPT ---
EXAM DATE/TIME: 11/12/2017 16:09 [facility] COMPARISON: CHEST SINGLE AP, November 10, 2017, 10:53. INDICATIONS : Post thoracentesis. MEDICAL HISTORY : Atrial fibrillation. SURGICAL HISTORY : Valve replacement. ENCOUNTER: Initial ACUITY: 1 day PAIN SCORE: 0/10 LOCATION: Bilateral chest FINDINGS: The patient is post right-sided thoracentesis. There is no pneumothorax. There is complete removal of the effusion. The patient is post median sternotomy and valvular replacement. The heart is mildly enlarged. The lef t lung demonstrates chronic interstitial change but is otherwise clear. There are degenerative changes in the shoulders bilaterally. CONCLUSION: 1. No pneumothorax identified following thoracentesis. Frank Grimaldo MD on November 12, 2017 at 16:20 Board Certified Radiologist. This report was verified electronically.
--- NOTE | 2017-11-12 17:46 | RADRPT ---
EXAM DATE/TIME: 11/12/2017 15:17 [facility] COMPARISON: No previous studies available for comparison. EXTERNAL COMPARISON: [facility], XR CHEST & LAT, Oct 15 2017. INDICATIONS : Right pleural effusion. MEDICAL HISTORY : Hypercholesterolemia. Hypertension. Right pleural effusion. A-fib. Dyspnea. Shortness of breath. Art hritis. Skin cancer. SURGICAL HISTORY : Cholecystectomy Back surgery with fusions/rods. Sternotomy. Aortic valve replacement. ENCOUNTER: Initial ACUITY: 2 days PAIN SCORE: 2/10 LOCATION: Right chest FLUID: Total volume of 1,500 cc of clear, amy fluid was removed. Fluid was sent to lab for ordered studies. TECHNIQUE: 1. Ultrasound guidance for thoracentesis. 2. Thoracentesis. The risks, benefits, and alternatives to ultrasound guided thoracentesis were explained to the patien t in lay simple terms, including the risk of bleeding and infection. Written and verbal informed con sent was obtained. Appropriate area for thoracentesis was marked under ultrasound guidance with the patient in the uprig ht position. Overlying skin was prepped and draped in the usual sterile fashion and with local anest hetic, a dermatotomy was made with an 11 blade scalpel. A 6 Wolof thoracentesis catheter was placed in the pleural space and fluid was removed. Catheter was then removed and a sterile dressing applie d. There were no immediate complications. The patient tolerated the procedure well and the left the ultrasound suite in stable condition. Chest radiograph is to be obtained. CONCLUSION: Uncomplicated ultrasound guided thoracentesis. Frank Grimaldo MD on November 12, 2017 at 17:43 Board Certified Radiologist. This report was verified electronically.
[2017-11-12] MEDS ORDERED: LEVOFLOXACIN/DEXTROSE 250 MG/50 ML IV SCH (18:00)
[2017-11-12] MEDS ORDERED: INFO FOR PHARMACY/READ COMMENT ONE (18:15)
[2017-11-12 18:17] LABS: PLEURAL FLUID HISTIOCYTES 1 %; PLEURAL FLUID LYMPHS 96 %; PLEURAL FLUID POLYS (SEGS) 3 %; PLEURAL FLUID RBC 2359 /MM3 (0-0); PLEURAL FLUID WBC 59 /MM3 (0-10)
[2017-11-12 20:10] LABS: TOTAL PROTEIN,PLEURAL FLUID 3.1 GM/DL
[2017-11-12] MEDS: PRAVASTATIN SOD 40 MG TAB PO SCH (21:56)
[2017-11-13] VITALS (9 sets, daily range): BP systolic 74–117; BP diastolic 44–72; PULSE 80–104; RESP 17–20; TEMP 96.5–97.8; O2SAT 92–99
[2017-11-13] MEDS: LEVOTHYROXINE SODIUM 88 MCG TAB PO SCH (05:34)
[2017-11-13 06:16] LABS: AUTOMATED NEUTROPHIL # 2.7 TH/MM3 (1.8-7.7); BASOPHIL % 0.1 % (0.0-2.0); EOSINOPHIL # 0.1 TH/MM3 (0-0.4); EOSINOPHIL % 1.3 % (0.0-4.0); HEMOGLOBIN 11.6 GM/DL (11.6-15.3); LYMPHOCYTE # 0.8 TH/MM3 (1.0-4.8); MEAN CELL VOLUME 90.6 FL (80.0-100.0); MEAN CORPUSCULAR HEMOGLOBIN 28.4 PG (27.0-34.0); MEAN CORPUSCULAR HGB CONC 31.3 % (32.0-36.0); MEAN PLATELET VOLUME 8.1 FL (7.0-11.0); MONO % 14.1 % (0.0-8.0); MONOCYTE # 0.6 TH/MM3 (0-0.9); NEUT % 66.5 % (16.0-70.0); PLATELET COUNT 96 TH/MM3 (150-450); RED BLOOD COUNT 4.09 MIL/MM3 (4.00-5.30); RED CELL DISTRIBUTION WIDTH 16.9 % (11.6-17.2); WHITE BLOOD COUNT 4.2 TH/MM3 (4.0-11.0)
[2017-11-13 06:24] LABS: CALCIUM 8.6 MG/DL (8.5-10.1)
[2017-11-13 06:25] LABS: BICARBONATE 37.1 MEQ/L (21.0-32.0); MAGNESIUM 1.5 MG/DL (1.5-2.5)
[2017-11-13 06:28] LABS: CREATININE 1.5 MG/DL (0.50-1.00)
[2017-11-13 06:35] LABS: INTERNATIONAL NORMALIZED RATIO 1.3 RATIO; PROTHROMBIN TIME - PATIENT 13.3 SEC (9.8-11.6)
[2017-11-13] MEDS: SODIUM CHLORIDE 0.9% FLUSH 10 ML FLUSH IV FLUSH SCH ×2 (08:27→21:33)
[2017-11-13] MEDS: HYDROCHLOROTHIAZIDE 12.5 MG CAP PO SCH (09:17)
[2017-11-13] MEDS: LOSARTAN 50 MG TAB PO SCH (09:17)
[2017-11-13] MEDS: PANTOPRAZOLE SOD 40 MG DELAYED RELEASE TAB PO SCH ×2 (09:18→21:32)
[2017-11-13] MEDS: PRAMIPEXOLE DIHYDROCHLORIDE 0.25 MG TAB PO SCH (09:18)
[2017-11-13] MEDS: CARVEDILOL 12.5 MG TAB PO SCH ×2 (09:18→21:33)
[2017-11-13] MEDS: MULTIVITAMIN TAB PO SCH (09:18)
--- NOTE | 2017-11-13 11:43 | HHI.DCPOC ---
Discharge Care Plan Diagnosis: (1) Pleural effusion, right Goals to Promote Your Health * To prevent worsening of your condition and complications * To maintain your health at the optimal level Directions to Meet Your Goals Take your medications as prescribed Follow your dietary instruction Follow activity as directed Keep your appointments as scheduled Take your immunizations and boosters as scheduled If your symptoms worsen call your PCP, if no PCP go to Urgent Care Center or Emergency Room Smoking is Dangerous to Your Health. Avoid second hand smoke Call the 24-hour hour crisis hotline for domestic abuse at Curtis Ramos Nov 13, 2017 11:43
--- NOTE | 2017-11-13 11:46 | HHI.FF ---
Face to Face Verification Diagnosis: (1) Anticoagulated on Coumadin (2) Pleural effusion, right Home Health Nursing Order: Medical education Signs/symptoms of disease process Nursing assessment with vital signs Instructions: PT/INR daily for 1 week, then 3 times weekly for 2 weeks, then weekly for 1 month, then monthly Discontinue Lovenox when INR greater than 2.[address] Anna, for adjustment I have seen patient Humaira Cordoba on 11/13/17. My clinical findings support the need for the requested home health care services because: Ltd mobility - disease progression Deconditioned w/ increased weakness I certify that my clinical findings support that this patient is homebound because: Unsteady gait/balance Curtis Ramos Nov 13, 2017 11:46
[2017-11-13] MEDS ORDERED: ENOX80P SQ (11:56)
[2017-11-13] MEDS ORDERED: LEVA250T14 PO (11:56)
[2017-11-13] MEDS ORDERED: COUM2.5T PO (11:56)
[2017-11-13] MEDS ORDERED: KLOR10TA PO (11:56)
[2017-11-13] MEDS ORDERED: FURO20TA PO (11:56)
[2017-11-13] MEDS ORDERED: CARV12.5 PO (11:56)
[2017-11-13] MEDS ORDERED: ENOXAPARIN SODIUM 80 MG/0.8 ML SYRINGE SQ SCH (12:00)
[2017-11-13] MEDS: POTASSIUM CHLORIDE 10 MEQ CONTROLLED RELEASE TAB PO SCH (14:33)
[2017-11-13] MEDS: FUROSEMIDE 20 MG TAB PO SCH (14:34)
[2017-11-13] MEDS ORDERED: WARFARIN SOD 5 MG TAB PO ONE (16:00)
--- NOTE | 2017-11-13 16:25 | HHI.PR ---
Subjective Remarks Patient seen and examined today for follow-up on right sided pleural effusion, hypoxia. Patient is status post thoracentesis yesterday. Patient is doing much better. No longer requiring oxygen for O2 saturations. Patient does live at home by herself. We'll need physical therapy evaluation prior to discharge. Objective Vital Signs Date Time Temp Pulse Resp B/P (MAP) Pulse Ox O2 Delivery O2 Flow Rate FiO2 11/13/17 12:00 96.5 80 20 74/44 (54) 96 11/13/17 08:04 95 Nasal Cannula 1.00 11/13/17 08:00 96.8 104 20 110/65 (80) 99 11/13/17 04:00 97.5 89 18 96/72 (80) 95 11/13/17 00:00 97.8 93 17 92/68 (76) 96 11/12/17 22:00 Nasal Cannula 2.00 11/12/17 21:51 98.2 91 20 105/69 (81) 95 11/12/17 21:00 94 Nasal Cannula 2.00 11/12/17 20:00 97.3 96 18 86/56 (66) 95 I/O 11/12/17 11/12/17 11/12/17 11/13/17 11/13/17 11/13/17 07:00 15:00 23:00 07:00 15:00 23:00 Intake Total 480 ml 240 ml 480 ml Output Total 200 ml Balance 280 ml 240 ml 480 ml Intake Oral 480 ml 240 ml 480 ml Output Urine Total 200 ml # Voids 1 3 1 2 # Bowel Movements 1 Result Diagram: 11/13/17 0447 11/13/17446 Objective Remarks GENERAL: Well-developed, well-nourished, in no acute distress. alert and orientated HEENT: Head is normocephalic without any lesions or masses noted. Facial features are symmetric. Eyes: Extraocular muscles are intact. Conjunctivae were clear. NECK: Supple without any masses. Trachea midline no deviation. No JVD, CARDIAC: Regular rhythm, regular rate. S1/S2 are heard. No murmurs gallops or rubs. LUNGS: Clear to auscultation bilaterally No wheeze, rhonchi or rales. No use of accessory muscles on inspiration or expiration. Mild labored speech ABDOMEN: Soft, nontender. Nondistended. Bowel sounds heard in all 4 quadrants. No organomegaly or masses. Negative rebound, negative guarding EXTREMITIES: No edema, pulses are equal bilaterally. No cyanosis or clubbing NEUROLOGY: Mood and affect appear appropriate. Cranial nerves II through XII grossly intact. Moving all extremities, speech is clear A/P Assessment and Plan Large right pleural effusion, unknown etiology Patient was scheduled for outpatient procedure, however due to worsening respiratory status, shortness of breath, dyspne, she presented to the hospital and subsequently admitted CT and chest x-ray does show whiteout of the right long and large pleural effusion Radiology consulted for ultrasound-guided thoracentesis performed on 11/12/17 with 1500 cc removal of fluid Results are indicative of transudative fluid. Lites criteria showing LDH 85 , protein ratio 0.46. No longer requiring supplement oxygen to maintain O2 sats greater than 92% Need to adjust medications, will discontinue hydrochlorothiazide, start Lasix Patient will need to continue follow-up with wood mechanist for serial chest x -rays to evaluate for recurrence Supratherapeutic INR Patient was recently on Zithromax, Coumadin was on hold, however INR did continue to worsen Status post vitamin K 10 mg subcutaneous, status post transfusion of one unit of fresh frozen plasma INR 1.3 today Patient restarted on Lovenox 80 mg subcutaneously daily is dose by pharmacy until INR 2.0 or higher Coumadin resumed with pharmacy dosing Chronic kidney disease stage III Renal functions appear to be stable at this time Hypertension, hyperlipidemia, coronary artery disease, history of atrial fibrillation, history of aortic valve replacement, history of TIA Home medication adjusted because of lower blood pressure and needing further medication to help prevent reoccurrence of pleural effusion Blood pressure medication adjusted to Coreg 6.25 twice daily Discontinuation of Cozaar/hydrochlorothiazide Start Lasix 20 mg daily DVT prevention Subcutaneous Lovenox daily and Coumadin. Monitor PT/INR Discharge Planning Physical therapy recommends that patient needs to go to rehabilitation for improved mobility. Case management consulted for placement. Discharge planning depending on arrangements made by case management Curtis Ramos Nov 13, 2017 16:25
[2017-11-13] MEDS ORDERED: LEVOFLOXACIN 250 MG TAB PO SCH (18:00)
[2017-11-13] MEDS ORDERED: TEMAZEPAM 15 MG CAP PO PRN (21:00)
[2017-11-13] MEDS: PRAVASTATIN SOD 40 MG TAB PO SCH (21:32)
[2017-11-13] MEDS: TEMAZEPAM 15 MG CAP PO PRN (21:32)
[2017-11-14] VITALS: BP 97/69; PULSE 85; RESP 17; TEMP 97.1; O2SAT 94
[2017-11-14 04:56] VITALS: BP 146/77; PULSE 93; RESP 22; TEMP 96.2; O2SAT 94
[2017-11-14] MEDS: LEVOTHYROXINE SODIUM 88 MCG TAB PO SCH (06:03)
[2017-11-14 06:53] LABS: INTERNATIONAL NORMALIZED RATIO 1.3 RATIO; PROTHROMBIN TIME - PATIENT 13.4 SEC (9.8-11.6)
[2017-11-14 08:00] VITALS: BP 118/63; PULSE 91; RESP 20; TEMP 96.8; O2SAT 95
[2017-11-14] MEDS: SODIUM CHLORIDE 0.9% FLUSH 10 ML FLUSH IV FLUSH SCH (08:49)
[2017-11-14] MEDS: POTASSIUM CHLORIDE 10 MEQ CONTROLLED RELEASE TAB PO SCH (09:48)
[2017-11-14] MEDS: PRAMIPEXOLE DIHYDROCHLORIDE 0.25 MG TAB PO SCH (09:48)
[2017-11-14] MEDS: FUROSEMIDE 20 MG TAB PO SCH (09:48)
[2017-11-14] MEDS: MULTIVITAMIN TAB PO SCH (09:49)
[2017-11-14] MEDS: CARVEDILOL 12.5 MG TAB PO SCH (09:49)
[2017-11-14] MEDS: PANTOPRAZOLE SOD 40 MG DELAYED RELEASE TAB PO SCH (09:49)
[2017-11-14 12:00] VITALS: BP 105/68; PULSE 97; RESP 20; TEMP 96.7; O2SAT 93
--- NOTE | 2017-11-14 12:09 | RADRPT ---
EXAM DATE/TIME: 11/14/2017 11:22 [facility] COMPARISON: CT THORAX W CONTRAST, November 10, 2017, 12:28. CHEST SINGLE AP, November 10, 2017, 10:53. CHEST EXPI RATION ONLY, November 12, 2017, 16:09. INDICATIONS : Cough, short of breath. Post right thoracentesis 2 days ago. MEDICAL HISTORY : Atrial fibrillation SURGICAL HISTORY : Valve replacement ENCOUNTER: Subsequent ACUITY: 3 days PAIN SCORE: 0/10 LOCATION: Bilateral chest FINDINGS: Frontal and lateral views of the chest demonstrate a normal-sized cardiac silhouette in this patient post median sternotomy. There is calcification in the aorta and patient is post valve replacement. Th ere is calcification of the mitral annulus. There are small bilateral pleural effusions. There is air space opacity in the region of the right middle lobe. Calcified granuloma remains present in the righ t lung. No pneumothorax is identified. Bones and soft tissues demonstrate no acute finding. CONCLUSION: Small bilateral pleural effusions with associated compressive atelectasis. There is airspace opacity in the region of the right middle lobe which could represent consolidation or atelectasis. Prior CT d emonstrated right middle lobe collapse. Jonathon Ford MD on November 14, 2017 at 12:01 Board Certified Radiologist. This report was verified electronically.
--- NOTE | 2017-11-14 12:56 | HHI.DS ---
Discharge Summary Admission Date Nov 10, 2017 at 13:15 Discharge Date: Nov 14, 2017 Admitting Diagnosis RIGHT PLEURAL EFFUSION (1) Pleural effusion, right ICD Code: J90 - Pleural effusion, not elsewhere classified Status: Acute (2) Acute on chronic kidney failure ICD Code: N17.9 - Acute kidney failure, unspecified; N18.9 - Chronic kidney disease, unspecified (3) Hypertension ICD Code: I10 - Essential (primary) hypertension (4) Hyperlipemia ICD Code: E78.5 - Hyperlipidemia, unspecified (5) Hypothyroidism ICD Code: E03.9 - Hypothyroidism, unspecified Procedures 11/12/17 ultrasound-guided thoracentesis with removal of 1.5 L of clear amy fluid Brief History - From Admission Written by Alysa Yang, acting as scribe for Dr. Leon on 11/10/17 at 15:32. This is an 89-year-old female patient with a known medical history of hypertension, atrial fibrillation and hyperlipidemia who presented to the ED with worsening shortness of breath. Patient states that she's had shortness of breath for roughly over the last year but has seemed to worsen over the past 2- 3 weeks. She does admit to a productive cough, with yellow colored sputum. States she tried to take [id number] cough syrup with no avail. Does admit to diminished appetite 1 week. She also comments that in August when she saw her dietist, she was taken off her WHIT inhibitor due to chronic cough. She did see her PCP within the last couple weeks and noticed on an x-ray that she had a pleural effusion in her right lung. Patient follows up with Dr. Pizano who has scheduled the patient for an outpatient thoracentesis on the of this month. In the meantime, her paste up copy camera operator has placed her on azithromycin and prednisone for a cough and an upper respiratory infection. Patient states that these have been ineffective to relieve her shortness of breath which led to her presentation to the ED. Denies any fever, chills, abdominal pain, nausea, vomiting, diarrhea or dysuria. BNP 573, white blood cell within normal limits, influenza negative. Afebrile. CBC/BMP: 11/13/17 0447 11/13/17 0447 Significant Findings Laboratory Tests Test 11/11/17 17:20 11/12/17 05:05 11/12/17 15:55 11/13/17 04:47 Prothrombin Time 24.7 SEC (9.8-11.6) 16.7 SEC (9.8-11.6) 13.3 SEC (9.8-11.6) Pleural Fluid WBC 59 /MM3 (0-10) Pleural Fluid RBC 2359 /MM3 (0-0) Mean Corpuscular Hemoglobin Concent 31.3 % (32.0-36.0) Platelet Count 96 TH/MM3 (150-450) Monocytes (%) (Auto) 14.1 % (0.0-8.0) Lymphocytes # (Auto) 0.8 TH/MM3 (1.0-4.8) Platelet Estimate LOW (NORMAL) Blood Urea Nitrogen 41 MG/DL (7-18) Creatinine 1.50 MG/DL (0.50-1.00) Carbon Dioxide Level 37.1 MEQ/L (21.0-32.0) Anion Gap 4 MEQ/L (5-15) Estimat Glomerular Filtration Rate 33 ML/MIN (>89) Test 11/14/17 05:13 Prothrombin Time 13.4 SEC (9.8-11.6) Imaging Last Impressions Chest X-Ray 11/14/17 0000 Signed Impressions: Service Date/Time: Tuesday, November 14, 2017 11:22 - CONCLUSION: Small bilateral pleural effusions with associated compressive atelectasis. There is airspace opacity in the region of the right middle lobe which could represent consolidation or atelectasis. Prior CT demonstrated right middle lobe collapse. Jonathon Ford MD Thoracentesis Ultrasound 11/12/17 0600 Signed Impressions: Service Date/Time: Sunday, November 12, 2017 15:17 - CONCLUSION: Uncomplicated ultrasound guided thoracentesis. Frank Grimaldo MD Chest CT 11/10/17 1123 Signed Impressions: Service Date/Time: Friday, November 10, 2017 12:28 - CONCLUSION: 1. Moderate to large right pleural effusion and minimal left effusion. 2. Atelectasis and or mild consolidation the right lung base which likely is compressive and due to be fusion. 3. Densely calcified granuloma in the right lower lobe. 4. Status post median sternotomy with aortic valve prosthesis in place. There is mild cardiomegaly. 5. There is no elevation of the right hemidiaphragm. George Bishop MD PE at Discharge General: Elderly female in no acute distress. Heart: Regular rate and rhythm. No murmur. Lungs: Decreased breath sounds on the right. Breathing is nonlabored. Abdomen: Soft, nontender, nondistended. Extremities: No lower extremity edema. Psych: Alert and oriented. Hospital Course This is an 89-year-old quite pleasant female with known history of hypertension , atrial fibrillation, aortic valve replacement with Bovie and heart valve, hyperlipidemia who presented to hospital because shortness of breath. Patient does have recent history of increased pleural effusion the right lung. Patient is followed by Dr. Pizano who has scheduled her for outpatient thoracentesis on the of this month. However her shortness of breath constantly worse so she came the hospital for evaluation. Patient had workup done and required supplemental oxygen to maintain O2 supplementation. Chest x-ray and CT does show very large right sided pleural effusion. Patient was planned undergo thoracentesis, however patient had coagulopathy secondary to supratherapeutic Coumadin level. Patient has been recently on Zithromax in which her 1 have been held however her INR continued to go up. Patient was given vitamin K and 1 unit of fresh frozen plasma. Her INR did improve in which he could undergo thoracentesis on 11/12/15. At that time patient did have 1.5 L removal of clear to amy fluid. Analysis of that did show transudative material with LDH 85 and protein ratio 0.46. Still awaiting cultures and cytology report. However patient was significantly improved after thoracentesis performed. Patient no longer requires oxygen. Follow-up chest x-ray was performed today which did show small bilateral effusions. Does not appear as if the fusion is returning at this time. Medications were adjusted for blood pressure and diuresis to try to prevent recurrence of pleural effusion. Physical therapy did evaluate the patient and indicates that she needs to have short term rehabilitation. Patient is in agreement at this time. Did discuss with patient and son at bedside today. They are very open to rehabilitation facility in was hoping to be accepted at [facility] today. Patient clinically stable this time. Her plan discharge to rehabilitation once arrangements made by case management. Pt Condition on Discharge: Stable Discharge Disposition: Discharge to SNF Discharge Time: > 30 minutes Discharge Instructions DIET: Follow Instructions for: Heart Healthy Diet Activities you can perform: Regular-No Restrictions Follow up Referrals: PCP Follow-up - 1 Week Pulmonology - 2 Weeks with Jerica Pizano MD New Medications: Carvedilol (Coreg) 12.5 Mg Tab 6.25 MG PO BID for Blood Pressure Management for 30 Days, #30 TAB Enoxaparin Inj (Lovenox Inj) 80 mg/0.8 ML Syr 80 MG SQ DAILY@1200 for anticoagulation for 7 Days, INJECTION Discontinue when INR 2.0 or higher Furosemide (Furosemide) 20 Mg Tab 20 MG PO DAILY for diuretic for 30 Days, #30 TAB Levofloxacin (Levaquin) 250 Mg Tablet 250 MG PO DAILY@1800 for Infection for 5 Days, TAB Potassium Chloride ER (Klor-Con 10) 10 Meq Tab 10 MEQ PO DAILY for electrolyte replacement for 30 Days, #30 TAB Warfarin (Coumadin) 2.5 Mg Tab 2.5 MG PO DAILY@1600 for anticoagulation for 30 Days, TAB Continued Medications: Buspirone (Buspirone) 10 Mg Tab 10 MG PO HS PRN for ANXIETY, TAB 0 Refills Levothyroxine (Levothyroxine) 88 Mcg Tab 88 MCG PO DAILY for Thyroid, #30 TAB 0 Refills Multiple Vitamin (Multiple Vitamin) 1 Tab 1 TAB PO DAILY for Nutritional Supplement, TAB 0 Refills Omeprazole (Omeprazole) 40 Mg Cap 40 MG PO BID, #30 CAP 0 Refills Pramipexole (Pramipexole) 0.5 Mg Tab 0.5 MG PO DAILY for Parkinson Disease Mgmt, #30 TAB 0 Refills Simvastatin (Simvastatin) 40 Mg Tab 40 MG PO HS for Cholesterol Management, #30 TAB 0 Refills Temazepam (Temazepam) 15 Mg Cap 15 MG PO HS PRN for INSOMNIA, #30 CAP 0 Refills Vitamin E (Vitamin E) 200 Unit Cap 200 UNITS PO DAILY for Nutritional Supplement, CAP 0 Refills Discontinued Medications: Carvedilol (Carvedilol) 12.5 Mg Tab 12.5 MG PO BID, #60 TAB 0 Refills Losartan-Hydrochlorothiazide (Losartan-Hydrochlorothiazide) 50-12.5 Mg Tab 1 TAB PO DAILY for Blood Pressure Management, #30 TAB 0 Refills Ramos,Curtis J. PA Nov 14, 2017 12:56
[2017-11-14 14:16] LABS: AMYLASE BODY FLUID 20 U/L; AMYLASE BODY FLUID TYPE PLEURAL
[2017-11-14] MEDS ORDERED: WARFARIN SOD 2.5 MG TAB PO SCH (16:00)
== END 2017-11-14 16:04 | DRG 187 ==
LOC: PHED 09:21 → PHEDA 13:15 → PH3A 15:30
PROVIDERS: ADMIT Hospitalist; ATTEND Hospitalist
PROC: 30233K1 Transfusion of Nonautologous Frozen Plasma into Peripheral Vein, Percutaneous Approach (ICD-10-PCS; principal; 2017-11-11)
PROC: 0W993ZX Drainage of Right Pleural Cavity, Percutaneous Approach, Diagnostic (ICD-10-PCS; 2017-11-12)
PROC: 0W993ZZ Drainage of Right Pleural Cavity, Percutaneous Approach (ICD-10-PCS; 2017-11-12)
DX: J90 Pleural effusion, not elsewhere classified (principal); N17.9 Acute kidney failure, unspecified; I48.2 Chronic atrial fibrillation; J44.9 Chronic obstructive pulmonary disease, unspecified; E78.5 Hyperlipidemia, unspecified; F41.9 Anxiety disorder, unspecified; K21.9 Gastro-esophageal reflux disease without esophagitis; I25.10 Atherosclerotic heart disease of native coronary artery without angina pectoris; N18.3 Chronic kidney disease, stage 3 (moderate); I12.9 Hypertensive chronic kidney disease with stage 1 through stage 4 chronic kidney disease, or unspecified chronic kidney disease; E03.9 Hypothyroidism, unspecified; J06.9 Acute upper respiratory infection, unspecified; R79.1 Abnormal coagulation profile; R09.02 Hypoxemia; R63.4 Abnormal weight loss; T45.515A Adverse effect of anticoagulants, initial encounter; Z79.01 Long term (current) use of anticoagulants; Z86.73 Personal history of transient ischemic attack (TIA), and cerebral infarction without residual deficits; Z95.3 Presence of xenogenic heart valve; Z87.891 Personal history of nicotine dependence; Z95.1 Presence of aortocoronary bypass graft
CPT/HCPCS: 32555; 36430; 71045; 71046; 71260; 80048; 80053; 81001; 82150; 82945; 83615; 83735; 83880; 84157; 84484; 85025; 85610; 85730; 86900; 86901; 86927; 87040; 87070; 87102; 87205; 87206; 87804; 88112; 88305; 89051; 93005; 93306; C1729; J1650; J1940; J1956; J3430; P9017; Q9967